=== PATIENT | male | born 1990 | race Hispanic/Latino ===

== ENCOUNTER 2020-01-17 11:13 | Emergency (ER) | payer SELFPAY ==
[2020-01-17] MEDS ORDERED: LIDOCAINE HCL MPF 1% 5ML VIAL ONE (11:29)
[2020-01-17] MEDS ORDERED: TETANUS/DIPHTHERIA TOXOID [ADULT] 0.5 ML VIAL IM ONE (11:39)
== END 2020-01-17 12:08 | disposition home or self-care (01) ==
LOC: EDH 11:13
DX: S90.452A Superficial foreign body, left great toe, initial encounter (principal); Z88.6 Allergy status to analgesic agent; Y93.71 Activity, boxing; Y93.89 Activity, other specified; Y92.098 Other place in other non-institutional residence as the place of occurrence of the external cause; Y99.8 Other external cause status
CPT/HCPCS: 10120; 90471; 90714; 99285; J3490; 28190

== ENCOUNTER 2020-11-15 00:33 | Emergency (ER) | payer OTHER ==
[~2020-11-15] VITALS: Ht 167.6 cm; Wt 65.8 kg
[2020-11-15 00:36] VITALS: BP 117/80
[2020-11-15 00:58] LABS: BASOPHILS % (AUTO) 0.3 % (0.0-5.0); EOSINOPHILS % (AUTO) 0.3 % (0.0-8.0); HEMATOCRIT 47.3 % (42-54); LYMPHOCYTES % (AUTO) 25.2 % (21.0-51.0); MEAN CORPUSCULAR HEMOGLOBIN 30.9 pg (27.0-33.0); MEAN CORPUSCULAR HGB CONC 33.4 g/dL (32.0-36.0); MEAN CORPUSCULAR VOLUME 92.4 fL (79-99); PLATELET COUNT (AUTO) 217 K/uL (130-400); RED BLOOD CELL COUNT(AUTO) 5.12 MIL/uL (4.50-6.20); RED CELL DISTRIBUTION WIDTH 12.2 % (11.0-15.5); WHITE BLOOD COUNT (AUTO) 6.2 K/uL (4.8-10.8)
[2020-11-15 01:12] LABS: ALBUMIN 4.8 g/dL (3.5-5.0); BILIRUBIN,TOTAL 0.6 mg/dL (0.2-1.0); CREATININE 0.7 mg/dL (0.5-1.5); TOTAL PROTEIN, SERUM 8.3 g/dL (6.0-8.3)
[2020-11-15 01:13] LABS: POTASSIUM 3.8 mmol/L (3.5-5.1)
[2020-11-15 01:29] LABS: AMPHET/METH SCREEN,URINE NEGATIVE (NEGATIVE); BARBITURATE SCREEN, URINE NEGATIVE (NEGATIVE); BENZODIAZEPINES SCREEN,URINE NEGATIVE (NEGATIVE); CANNABINOID SCREEN,URINE POSITIVE (NEGATIVE); COCAINE SCREEN,URINE NEGATIVE (NEGATIVE); OPIATE SCREEN,URINE NEGATIVE (NEGATIVE); PHENCYCLIDINE SCREEN,URINE NEGATIVE (NEGATIVE)
[2020-11-15 03:50] VITALS: BP 124/82
[2020-11-15] MEDS ORDERED: ALPR-409 PO (04:08)
== END 2020-11-15 04:33 | disposition home or self-care (01) ==
LOC: EDH 01:11
DX: I35.0 Nonrheumatic aortic (valve) stenosis (principal); F41.1 Generalized anxiety disorder; Z98.890 Other specified postprocedural states
CPT/HCPCS: 36415; 71045; 80053; 80305; 84484; 85025; 93005